=== PATIENT | female | born 1955 | race African-American/Black ===

== ENCOUNTER 2016-06-10 08:56 | Emergency (ER) | payer BC, MEDICARE ==
[~2016-06-10 08:56] MED LIST: CENTRUM TAB1 TAB; DIL4TAB PO; DIOV160 PO; FLEXERIL5 MG PO; MULTIVITAMI1 PO; NEUR100 PO; NUCYNTA50 MG PO; OS500+D PO; ZOFRAN4 PO
[2016-06-10 10:47] LABS: ASCORBIC ACID (UR NOT ORDER) NEG (NEG); BILIRUBIN, URINE NEGATIVE (NEG); ER URINALYSIS TAT 0 Hrs 16 Mins; KETONE, URINE NEGATIVE (NEG); LEUKOCYTE ESTERASE(NOT OR LARGE (NEG); NITRITE (URINE) NEG (NEG); WBC (NOT ORDERED) (RFLEX) 44 (0-5)
[2016-06-10 12:14] LABS: CHLAMYDIA TRACH PCR NOT DETECTED (NOT DETEC); GC PCR NOT DETECTED (NOT DETECT); SOURCE: FEMALE URINE
== END 2016-06-10 11:50 | disposition home or self-care (01) ==
LOC: ER 08:56
PROVIDERS: Nurse Practitioner Acute Care
DX: J02.9 Acute pharyngitis, unspecified (principal); N39.0 Urinary tract infection, site not specified; I10 Essential (primary) hypertension; Z88.5 Allergy status to narcotic agent; Z88.8 Allergy status to other drugs, medicaments and biological substances; Z79.899 Other long term (current) drug therapy
CPT/HCPCS: 71020; 81001; 87070; 87086; 87491; 87591; 87880; 99284